=== PATIENT | male | born 1985 | race Caucasian/White ===

== ENCOUNTER 2016-10-05 01:00 | Emergency (ER) | payer OTHER ==
[~2016-10-05] VITALS: Ht 177.8 cm; Wt 81.1 kg
[~2016-10-05 01:00] MED LIST: AUGMENTIN875 MG PO; BACTRIM,SEPT1 TABLET PO; CLINDAMYCIN HC300 MG PO; KEFLEX500 MG PO; LORTAB 5-325 M1 EACH PO; MOBIC7.5 MG PO; MOTRIN600 MG PO; NAPROXEN500 MG PO
[2016-10-05 01:55] LABS: EOSINOPHIL (%) 0.5 % (0-5); EOSINOPHIL COUNT 0.1 K/uL (0-0.3); HEMATOCRIT 40.4 % (38.0-50.0); IMMATURE GRANULOCYTE (%) 0.2 % (0.0-0.7); IMMATURE GRANULOCYTE COUNT 0.2 K/uL; LYMPHOCYTE COUNT 2.5 K/uL (1.0-2.8); MCH 30.4 PG (29.0-34.0); MCHC 34.2 G/DL (30.0-36.0); MEAN PLAT.VOLUME 9.5 uM^3 (9.0-12.4); MONOCYTE (%) 5.9 % (3-12); MONOCYTE COUNT 0.7 K/uL (0-0.8); NEUTROPHIL (%) 72.8 % (45-76); NEUTROPHIL COUNT 8.7 K/uL (1.8-6.4); PLATELET COUNT 207 K/uL (156-360); RBC DIS.WIDTH-CV 12.7 % (11.8-14.6); RBC DIS.WIDTH-SD 40.5 % (39-53); RED BLOOD COUNT 4.54 M/uL (4.00-5.50); WHITE BLOOD COUNT 11.9 K/uL (4.1-10.2)
[2016-10-05 02:10] LABS: CHLORIDE 99 mEq/L (99-109); POTASSIUM 3.5 mEq/L (3.7-5.4); SODIUM 140 mEq/L (136-147)
[2016-10-05 02:12] LABS: GLUCOSE 125 mg/dL (70-99)
[2016-10-05 02:14] LABS: ANION GAP 10 MEQ/L (2-14); TOTAL BILIRUBIN 0.5 mg/dL (0.0-1.0)
[2016-10-05 02:16] LABS: ALKALINE PHOSPHATASE 92 IU/L (3-129); GFR ESTIMATE (CALCULATED) 54 mL/min/
[2016-10-05 02:17] LABS: UREA NITROGEN (BUN) 26 mg/dL (9-23)
[2016-10-05 03:40] VITALS: BP 144/87
== END 2016-10-05 03:40 | disposition left against medical advice (07) ==
LOC: EME 01:00
PROVIDERS: Emergency Medicine
DX: R20.0 Anesthesia of skin (principal); R53.1 Weakness; M54.5 Low back pain; R26.2 Difficulty in walking, not elsewhere classified; W19.XXXA Unspecified fall, initial encounter; Y92.009 Unspecified place in unspecified non-institutional (private) residence as the place of occurrence of the external cause; F17.200 Nicotine dependence, unspecified, uncomplicated
CPT/HCPCS: 70450; 72128; 72131; 80053; 85025; 99281; 99284

== ENCOUNTER 2016-10-24 00:49 | Emergency (ER) | payer OTHER ==
[~2016-10-24] VITALS: Ht 177.8 cm; Wt 76.2 kg
[2016-10-24 01:10] LABS: HEMATOCRIT 43.5 % (38.0-50.0); MCHC 33.8 G/DL (30.0-36.0); MCV 88.8 FL (86-99); PLATELET COUNT 257 K/uL (156-360); RBC DIS.WIDTH-CV 12.2 % (11.8-14.6); RBC DIS.WIDTH-SD 39.3 % (39-53); WHITE BLOOD COUNT 9.2 K/uL (4.1-10.2)
[2016-10-24 01:19] LABS: CHLORIDE 104 mEq/L (99-109); POTASSIUM 4.3 mEq/L (3.7-5.4); SODIUM 142 mEq/L (136-147)
[2016-10-24 01:21] LABS: GLUCOSE 99 mg/dL (70-99)
[2016-10-24 01:22] LABS: ANION GAP 12 MEQ/L (2-14)
[2016-10-24 01:24] LABS: SERUM ETHYL ALCOHOL < 10 mg/dL
[2016-10-24 01:25] LABS: GFR ESTIMATE (CALCULATED) > 59 mL/min/
[2016-10-24 01:27] LABS: UREA NITROGEN (BUN) 17 mg/dL (9-23)
[2016-10-24 01:28] LABS: SALICYLATE < 5.0 MG/DL (15-30)
[2016-10-24 02:50] VITALS: BP 119/71
== END 2016-10-24 02:52 ==
LOC: EME → EDBD 00:49 → EME 00:49
PROVIDERS: Emergency Medicine
DX: T40.901A Poisoning by unspecified psychodysleptics [hallucinogens], accidental (unintentional), initial encounter (principal); R20.0 Anesthesia of skin; M21.372 Foot drop, left foot; F55.8 Abuse of other non-psychoactive substances; F17.200 Nicotine dependence, unspecified, uncomplicated; Z86.73 Personal history of transient ischemic attack (TIA), and cerebral infarction without residual deficits
CPT/HCPCS: 70450; 71010; 80048; 85027; 93005; 99281; 99284; G0480; J7030

== ENCOUNTER 2017-01-01 22:47 | Emergency (ER) | payer OTHER ==
[~2017-01-01] VITALS: Ht 177.8 cm; Wt 77.3 kg
[2017-01-02 01:23] VITALS: BP 138/88
== END 2017-01-02 01:26 | disposition home or self-care (01) ==
LOC: EME 22:47
PROC: 3E0234Z Introduction of Serum, Toxoid and Vaccine into Muscle, Percutaneous Approach (ICD-10-PCS; principal; 2017-01-01)
DX: S06.0X9A Concussion with loss of consciousness of unspecified duration, initial encounter (principal); S01.111A Laceration without foreign body of right eyelid and periocular area, initial encounter; Z23 Encounter for immunization; Y08.02XA Assault by strike by baseball bat, initial encounter; F17.200 Nicotine dependence, unspecified, uncomplicated
CPT/HCPCS: 70450; 70486; 72125; 99281; 99284

== ENCOUNTER 2017-01-08 14:25 | Emergency (ER) | payer OTHER ==
[~2017-01-08] VITALS: Ht 177.8 cm; Wt 83.7 kg
[2017-01-08 14:30] VITALS: BP 113/59
[2017-01-09] MEDS ORDERED: KEFLEX500 MG PO (02:48)
== END 2017-01-08 15:18 | disposition left against medical advice (07) ==
LOC: EME 14:25
DX: R22.43 Localized swelling, mass and lump, lower limb, bilateral (principal); Z86.73 Personal history of transient ischemic attack (TIA), and cerebral infarction without residual deficits; F17.200 Nicotine dependence, unspecified, uncomplicated
CPT/HCPCS: 80048; 85027; 99281; 99283

== ENCOUNTER 2017-01-09 00:42 | Emergency (ER) | payer OTHER ==
[~2017-01-09] VITALS: Ht 177.8 cm; Wt 85.7 kg
[2017-01-09 02:23] LABS: HEMATOCRIT 35.7 % (38.0-50.0); MCH 30.4 PG (29.0-34.0); MCHC 32.5 G/DL (30.0-36.0); MCV 93.7 FL (86-99); PLATELET COUNT 215 K/uL (156-360); RBC DIS.WIDTH-CV 13.7 % (11.8-14.6); RBC DIS.WIDTH-SD 46.9 % (39-53); RED BLOOD COUNT 3.81 M/uL (4.00-5.50); WHITE BLOOD COUNT 12.1 K/uL (4.1-10.2)
[2017-01-09 02:35] LABS: CHLORIDE 101 mEq/L (99-109); POTASSIUM 3.9 mEq/L (3.7-5.4); SODIUM 139 mEq/L (136-147)
[2017-01-09 02:37] LABS: GLUCOSE 115 mg/dL (70-99)
[2017-01-09 02:38] LABS: ANION GAP 6 MEQ/L (2-14)
[2017-01-09 02:41] LABS: GFR ESTIMATE (CALCULATED) > 59 mL/min/; UREA NITROGEN (BUN) 10 mg/dL (9-23)
[2017-01-09] MEDS ORDERED: KEFLEX500 MG PO (02:48)
[2017-01-09 03:28] VITALS: BP 116/67
[2017-01-10] MEDS ORDERED: IBUPROFEN800 MG PO (18:53)
[2017-01-10] MEDS ORDERED: FLEXERIL10 MG PO (18:53)
[2017-01-10] MEDS ORDERED: BUPRENORPHINE HC8 MG SL (18:54)
[2017-01-10] MEDS ORDERED: LYRICA100 MG PO (18:54)
== END 2017-01-09 03:29 | disposition home or self-care (01) ==
LOC: EME 00:42
PROVIDERS: Physician Assistant
DX: L03.116 Cellulitis of left lower limb (principal); S70.361A Insect bite (nonvenomous), right thigh, initial encounter; W57.XXXA Bitten or stung by nonvenomous insect and other nonvenomous arthropods, initial encounter; I10 Essential (primary) hypertension; Z86.73 Personal history of transient ischemic attack (TIA), and cerebral infarction without residual deficits; F17.200 Nicotine dependence, unspecified, uncomplicated
CPT/HCPCS: 80048; 85027; 99281; 99284

== ENCOUNTER 2017-01-10 10:56 | Emergency (ER) | payer OTHER ==
[~2017-01-10] VITALS: Ht 177.8 cm; Wt 88.9 kg
[2017-01-10 13:40] LABS: HEMATOCRIT 34.2 % (38.0-50.0); MCH 30.6 PG (29.0-34.0); MCV 92.7 FL (86-99); MEAN PLAT.VOLUME 9.8 uM^3 (9.0-12.4); PLATELET COUNT 230 K/uL (156-360); RBC DIS.WIDTH-CV 13.8 % (11.8-14.6); RBC DIS.WIDTH-SD 46.8 % (39-53); RED BLOOD COUNT 3.69 M/uL (4.00-5.50); WHITE BLOOD COUNT 7.7 K/uL (4.1-10.2)
[2017-01-10 13:44] LABS: CHLORIDE 102 mEq/L (99-109); POTASSIUM 4.6 mEq/L (3.7-5.4); SODIUM 139 mEq/L (136-147)
[2017-01-10 13:45] LABS: GLUCOSE 99 mg/dL (70-99)
[2017-01-10 13:47] LABS: ANION GAP 8 MEQ/L (2-14)
[2017-01-10 13:48] LABS: SERUM ETHYL ALCOHOL < 10 mg/dL
[2017-01-10 13:49] LABS: GFR ESTIMATE (CALCULATED) > 59 mL/min/
[2017-01-10 13:50] LABS: UREA NITROGEN (BUN) 8 mg/dL (9-23)
[2017-01-10 14:12] LABS: ADD MEDTOX COMMENT Y; AMPHETAMINE NEGATIVE (500 ng/mL); BARBITURATES NEGATIVE (200 ng/mL); BENZODIAZEPINES NEGATIVE (150 ng/mL); COCAINE PRESUMPTIVE POSITIVE (150 ng/mL); INTERNAL CONTROLS VALID? YES; METHADONE NEGATIVE (200 ng/mL); METHAMPHETAMINE NEGATIVE (500 ng/mL); OPIATES (MORPHINE) NEGATIVE (100 ng/mL); OXYCODONE NEGATIVE (100 ng/mL); PHENCYCLIDINE PRESUMPTIVE POSITIVE (25 ng/mL); PROPOXYPHENE NEGATIVE (300 ng/mL); THC CANNABINOIDS PRESUMPTIVE POSITIVE (50 ng/mL); TRICYCLIC ANTIDEPRESSANTS NEGATIVE (300 ng/mL)
[2017-01-10 15:55] LABS: ADD MIUA? NO; BILIRUBIN NEGATIVE; BLOOD NEGATIVE; COLOR STRAW ((YELLOW)); GLUCOSE (STRIP) NEGATIVE; KETONES NEGATIVE; LEUKOCYTES NEGATIVE; NITRITE NEGATIVE; PROTEIN (STRIP) NEGATIVE; SPECIFIC GRAVITY 1.005 (1.000-1.030); UROBILINOGEN 0.2 MG/DL (0.2-1.0)
[2017-01-10 16:45] LABS: INTER. NORMALIZED RATIO 0.9; PROTHROMBIN TIME 9.5 (9.2-11.2); PTT 27.8 (25-32)
[2017-01-10] MEDS ORDERED: IBUPROFEN800 MG PO (18:53)
[2017-01-10] MEDS ORDERED: FLEXERIL10 MG PO (18:53)
[2017-01-10] MEDS ORDERED: BUPRENORPHINE HC8 MG SL (18:54)
[2017-01-10] MEDS ORDERED: LYRICA100 MG PO (18:54)
[2017-01-10 21:27] VITALS: BP 108/60
== END 2017-01-10 21:35 | disposition home or self-care (01) ==
LOC: RME 10:56 → EME 10:56 → RME 21:35
PROVIDERS: Physician Assistant Medical
DX: L03.116 Cellulitis of left lower limb (principal); L03.115 Cellulitis of right lower limb; R60.9 Edema, unspecified; F17.200 Nicotine dependence, unspecified, uncomplicated; I10 Essential (primary) hypertension; Z86.73 Personal history of transient ischemic attack (TIA), and cerebral infarction without residual deficits
CPT/HCPCS: 74177; 80048; 81003; 83605; 84999; 85027; 85610; 85730; 87040; 93970; 99281; 99285; G0480; J7030